=== PATIENT | male | born 1960 | race Caucasian/White ===

== ENCOUNTER 2021-07-26 07:31 | Day surgery (SDC) | payer BC, SELFPAY ==
[2021-07-20 13:30] VITALS: BMI 37.6
--- NOTE | 2021-07-25 09:14 | HO.ANESPROP2 ---
Documented by User: Annabel Rodrigues NP 07/25/21 09:14 HPI - Anesthesia Eval Consult details Narrative: 61yo M for Upper Endoscopy with Balloon Dilitation [facility] Past Medical History Medical History (Updated 07/20/21 @ 13:29 by Christa Gonzalez RN) Back pain GERD (gastroesophageal reflux disease) Nephrolithiasis Sleep apnea Surgical History Surgical History (Updated 07/20/21 @ 13:29 by Christa Gonzalez RN) H/O colonoscopy Social History Social History Patient Tobacco Use Status: Never used Tobacco Use of substances other than those prescribed or required for medical reasons: No Are you DNR?: No Advance Directives: No Advance Directives Information Provided: Yes Advance Directives on File: No Meds Allergies Allergy/AdvReac Type Severity Reaction Status Date / Time No Known Allergies Allergy Verified 07/20/21 13:30 Home Medications Medication Instructions Recorded Confirmed Last Taken Type famotidine 20 mg tablet 20 mg PO BEDTIME 07/20/21 07/20/21 Unknown History Exam Exam Date and Time: July 25, 2021 0914 Height,Weight and Vital Signs: Height 5 ft 11 in Weight 122.47 kg Assessment and Plan Assessment Anesthesia Assessment: Chart Reviewed Documented by User: Mary Abdalla MD 07/26/21 08:52 [facility] Active Problems Active Problems: GERD. OTC meds Increased BMI Past Medical History Medical History (Updated 07/20/21 @ 13:29 by Christa Gonzalez RN) Back pain GERD (gastroesophageal reflux disease) Nephrolithiasis Sleep apnea Family History Family history of problems with anesthesia: No Surgical History Surgical History (Updated 07/20/21 @ 13:29 by Christa Gonzalez RN) H/O colonoscopy History of Problems with Anesthesia: No Social History Social History Patient Tobacco Use Status: Never used Tobacco Use of substances other than those prescribed or required for medical reasons: No Are you DNR?: No Advance Directives: No Advance Directives Information Provided: Yes Advance Directives on File: No Meds Allergies Allergy/AdvReac Type Severity Reaction Status Date / Time No Known Allergies Allergy Verified 07/20/21 13:30 Home Medications Medication Instructions Recorded Confirmed Last Taken Type famotidine 20 mg tablet 20 mg PO BEDTIME 07/20/21 07/20/21 Unknown History Exam Height,Weight and Vital Signs: Height 5 ft 11 in Weight 122.47 kg Vital Signs Temp Pulse Resp BP Pulse Ox 07/26/21 07:50 97.0 F 48 L 16 138/72 95 Airway Mallampati Class: II TM Dist: >3cm Neck ROM: Full Loose/Missing/Broken Teeth: Yes (Broken top back Right) Heart: RRR Lungs: CTAB Assessment and Plan Assessment Anesthesia Assessment: Anesthesia Plan Discussed Final Anesthetic Review Family History of Problems with Anesthesia: No History of Problems with Anesthesia: No NPO: Yes ASA Class: III Final Preanesthetic Review: No Changes in Pt Med Stat, Meds/Allgs Chart Reviewed, Consent Obtained/Reviewed and Anes Risks/Benef Reviewed Patient Risk: Intermediate Procedure Risk: Low Assessment/Block/Sedation in SS: Assess/Block/Sedation-SS Anesthetic Plan Anesthetic Plan: MAC: Disposition: Standard PACU
[2021-07-26 07:50] VITALS: BP 138/72; PULSE 48; RESP 16; TEMP 36.1; O2SAT 95
[2021-07-26] MEDS: Lactated Ringers 1,000 ML 100 ML IVCONT (07:58)
--- NOTE | 2021-07-26 08:44 | MHC.SHP ---
Pre-Procedural Eval Section A Date of Service: 07/26/21 Section B Chief Complaint: Other dysphagia Details of Present Illness: see H&P no changes Relevant Family History (Specify if Yes): No Relevant Social History: None Present Medications: see Short Stay Collaborative assessment Medical History: No relevant PMH History of Previous Operations: No relevant previous surgery Allergies: Allergies Allergy/AdvReac Type Severity Reaction Status Date / Time No Known Allergies Allergy Verified 07/20/21 13:30 Review of Systems Sugical H&P ROS: Negative: Constitution, Cardiovascular, Respiratory, Neurological, Psychiatric, Hem-Onc, Allergic/Immunologic, Gastrointestinal, Genitourinary, Musculoskeletal, Integumentary, Endocrine and Eyes/Ears/Nose/Throat Exam Surgical H&P Exam: Normal: HEENT, Normal: Heart, Normal: Lungs, Normal: Extremities, Normal: Abdomen, Normal: Skin and Normal: Neurological Plan Diagnosis/Plan: Unchanged I have reviewed the history and physical and performed a pertinent physical examination on my patient. No changes have occurred unless specified.
--- NOTE | 2021-07-26 09:02 | PM.OP ---
Brief Operative Note Date of Service: 07/26/21 Pre-op diagnosis: dysphagia Surgeon: Yohannes Strange Anesthesia: MAC Was an Cool Roofing Installer used for this Procedure?: No Estimated blood loss (mL): 5 Pathology: other (bxs egj antrum gastric polyp) Condition: stable Disposition: PACU
[2021-07-26 09:07] VITALS: BP 119/64; PULSE 74; RESP 16; TEMP 36.6; O2SAT 95
[2021-07-26 09:22] VITALS: BP 136/78; PULSE 56; RESP 16; TEMP 36.6; O2SAT 94
[2021-07-26 09:30] VITALS: BP 135/78; PULSE 55; RESP 16; TEMP 36.6; O2SAT 97
--- NOTE | 2021-07-26 20:31 | OP_ITS ---
SURGEON: Yohannes Strange MD INDICATIONS: Dysphagia and history of Schatzki ring. PREOPERATIVE DIAGNOSIS: POSTOPERATIVE DIAGNOSIS: PROCEDURE PERFORMED: Upper endoscopy with balloon dilation and biopsy. ESTIMATED BLOOD LOSS: COMPLICATIONS: ANESTHESIA: Medications, monitored anesthesia care. ASSISTANTS: SPECIMENS: DESCRIPTION OF PROCEDURE: History and physical performed. The risks and benefits of the procedure were explained to the patient. Informed consent was obtained. The patient was placed in the left lateral decubitus position. The Olympus video gastroscope was introduced into the esophagus, stomach, and duodenum. Examination was performed. The scope was removed. He tolerated the procedure well. He returned to recovery area in stable condition. FINDINGS: 1. Esophagus: The esophagus was normal. There was very minimal to no narrowing at the EG junction without definite Schatzki ring not identified. Balloon dilation at 18 and 20 mm for 60 seconds was done with some bleeding noted that was stable at the termination of the procedure, consistent with successful dilation. Biopsies were obtained from the EG junction. 2. Stomach: The stomach showed a single polyp in the body measuring less than 5 mm which was removed with the biopsy forceps. Antral biopsies were obtained. 3. Duodenum: The bulb and second portion were normal. IMPRESSION: Dysphagia, gastric polyp. RECOMMENDATION: Follow up the biopsy results. MD ARISTEO Pinedo/SHARAL / [id number]
== END 2021-07-26 11:01 | disposition home or self-care (01) ==
PROVIDERS: PCP Nurse Practitioner Family; Visit Provider Internal Medicine Gastroenterology
PROC: (CPT 43249; principal; 2021-07-26 08:50)
DX: R13.19 Other dysphagia (principal); R11.11 Vomiting without nausea; Z87.19 Personal history of other diseases of the digestive system; K31.7 Polyp of stomach and duodenum; K21.9 Gastro-esophageal reflux disease without esophagitis; G47.33 Obstructive sleep apnea (adult) (pediatric); Z99.89 Dependence on other enabling machines and devices; Z79.899 Other long term (current) drug therapy; Z87.442 Personal history of urinary calculi; Z98.890 Other specified postprocedural states
CPT/HCPCS: 43249; 43239; 88305; 88342; C1726; J2250